=== PATIENT | female | born 1990 | race Caucasian/White ===

== ENCOUNTER 2016-06-01 15:38 | Emergency (ER) | payer BC, OTHER ==
[2016-06-01 16:07] VITALS: BP 132/78; PULSE 84; RESP 18; TEMP 97.9; O2SAT 99
--- NOTE | 2016-06-01 16:34 | ED PDOC ---
HPI: Female Pain Time Seen by Provider: 06/01/16 16:09 Chief Complaint (Nursing): Abdominal Pain History Per: Patient History/Exam Limitations: no limitations Additional Complaint(s): 25-year-old female, presents to the emergency department with complaints of vaginal spotting and lower abdominal cramping for the past two days. Patient notes that her period is late x15 days. Home test was positive twice and negative once. Patient denies any nausea/vomiting, back pain, dizziness, diarrhea, dysuria/urinary frequency, vaginal discharge, or any other associated symptoms. No other complaints at this time. . Past Medical History Reviewed: Historical Data, Nursing Documentation, Vital Signs Vital Signs: Last Vital Signs Temp 97.9 F 06/01/16 16:05 Pulse 84 06/01/16 16:05 Resp 18 06/01/16 16:05 BP 132/78 06/01/16 16:05 Pulse Ox 99 06/01/16 16:05 - Medical History PMH: TIA - Family History Family History: States: Diabetes, Hypertension - Home Medications Home Medications: Ambulatory Orders Medication Instructions Recorded Sulfamethoxazole/Trimethopri 1 tab PO BID #14 tab 03/21/15 [Bactrim Ds 800 mg-160 mg] Tramadol Hydrochloride [Tramadol] 50 mg PO BID PRN #20 tab 03/21/15 Fluticasone Nasal [Flonase] 1 spray NS DAILY #1 bottle 03/22/16 Oseltamivir Phosphate [Tamiflu] 75 mg PO BID #10 capsule 03/22/16 - Allergies Allergies/Adverse Reactions: Allergies Allergy/AdvReac Type Severity Reaction Status Date / Time No Known Allergies Allergy Verified 03/21/15 09:12 Review of Systems ROS Statement: Except As Marked, All Systems Reviewed And Found Negative Constitutional: Negative for: Fever, Chills Cardiovascular: Negative for: Chest Pain Respiratory: Negative for: Cough, Shortness of Breath Gastrointestinal: Positive for: Abdominal Pain. Negative for: Nausea, Vomiting Genitourinary Female: Positive for: Vaginal Bleeding Musculoskeletal: Negative for: Back Pain Skin: Negative for: Rash Neurological: Negative for: Weakness, Headache, Dizziness Physical Exam - Reviewed Nursing Documentation Reviewed: Yes Vital Signs Reviewed: Yes - Physical Exam Appears: Positive for: Non-toxic, No Acute Distress Head Exam: Positive for: ATRAUMATIC, NORMOCEPHALIC Skin: Positive for: Warm, Dry. Negative for: Rash Cardiovascular/Chest: Positive for: Regular Rate, Rhythm Respiratory: Positive for: Normal Breath Sounds. Negative for: Accessory Muscle Use, Respiratory Distress Gastrointestinal/Abdominal: Positive for: Soft. Negative for: Tenderness Pelvic Exam: Positive for: Other (Scant blood noted in vaginal vault. Flow Match Sofa Cutter : BREA Blakely). Negative for: No Cerv. Motion Tender Extremity: Positive for: Normal ROM Neurologic/Psych: Positive for: Alert, Oriented - ECG O2 Sat by Pulse Oximetry: 99 Medical Decision Making Medical Decision Making: Impression: vaginal spotting Plan: * Urine/preg * Reassess and Disposition Scribe Attestation: Documented by Norbert Dorado acting as a scribe for James Shelton MD. Provider Attestation: All medical record entries made by the Scribe were at my direction and personally dictated by me. I have reviewed the chart and agree that the record accurately reflects my personal performance of the history, physical exam, medical decision making, and the department course for this patient. I have also personally directed, reviewed, and agree with the discharge instructions and disposition. Disposition - Clinical Impression Clinical Impression: Abdominal pain - Patient ED Disposition Is Patient to be Admitted: Transfer of Care - Disposition Disposition: Transfer of Care Disposition Time: 16:54 Condition: FAIR Patient Signed Over To: Mansoor Barajas
--- NOTE | 2016-06-01 16:58 | ED PDOC ---
- Laboratory Results Result Diagrams: 06/01/16 17:00 06/01/16 17:00 - ECG O2 Sat by Pulse Oximetry: 99 Medical Decision Making Medical Decision Making: Time: 1700 Patient signed out by Dr. Shelton pending labs and status 18:20 Labs normal, showed that patient is not . Patient to go home with C.O.D. CLERK follow up. Patient RH positive. Discussed with patient, ready to be discharged home. Scribe Attestation: Documented by Laney Modi acting as a scribe for Mansoor Barajas MD MD Scribe Attestation: All medical record entries made by the Scribe were at my direction and personally dictated by me. I have reviewed the chart and agree that the record accurately reflects my personal performance of the history, physical exam, medical decision making, and the department course for this patient. I have also personally directed, reviewed, and agree with the discharge instructions and disposition. 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 return to the ED with any worsening or concerning symptoms Instructions: Abdominal Pain (ED)
[2016-06-01 17:11] LABS: BASO # 0.1 K/uL (0.0-0.2); BASO % 0.7 % (0.0-2.0); EOS # 0.1 K/uL (0.0-0.7); EOS % 0.8 % (0.0-4.0); HEMATOCRIT 39.7 % (34.0-47.0); LYMPH % 22.5 % (20.0-40.0); MEAN CELL VOLUME 86.4 fl (81.0-99.0); MEAN CORPUSCULAR HEMOGLOBIN 29.2 pg (27.0-31.0); MEAN CORPUSCULAR HGB CONC 33.8 g/dL (33.0-37.0); MEAN PLATELET VOLUME 7.5 fl (7.2-11.7); MONO # 0.6 K/uL (0.0-0.8); NEUT # 6.1 K/uL (1.8-7.0); NRBC % 0.1 % (0.0-0.0); RED CELL DISTRIBUTION WIDTH 13.6 % (11.5-14.5); WHITE BLOOD COUNT 8.9 K/uL (4.8-10.8)
[2016-06-01 17:30] LABS: ALB/GLOB RATIO 1.3 (1.0-2.1); ALKALINE PHOSPHATASE 107 U/L (38-126); ALT/SGPT 35 U/L (9-52); AST/SGOT 29 U/L (14-36); BILIRUBIN,TOTAL 0.4 mg/dl (0.2-1.3); BLOOD UREA NITROGEN 15 mg/dl (7-17); CALCIUM 9.7 mg/dL (8.4-10.2); CARBON DIOXIDE 29 mmol/L (22-30); CHLORIDE 101 mmol/L (98-107); GFR AFRICAN-AMERICAN > 60; GLUCOSE,RANDOM 89 mg/dL (65-105); POTASSIUM 3.8 MMOL/L (3.6-5.0); SODIUM 142 mmol/l (132-148); TOTAL PROTEIN 7.8 G/DL (6.3-8.2)
== END 2016-06-01 18:48 | disposition home or self-care (01) ==
LOC: H.ER 15:38
DX: R10.9 Unspecified abdominal pain (principal); Z86.73 Personal history of transient ischemic attack (TIA), and cerebral infarction without residual deficits

== ENCOUNTER 2016-06-05 08:49 | Emergency (ER) | payer OTHER ==
[2016-06-05 09:12] VITALS: BP 121/77; PULSE 72; RESP 18; TEMP 98.2; O2SAT 100
[2016-06-05 09:52] LABS: BASO % 0.6 % (0.0-2.0); EOS % 0.4 % (0.0-4.0); HEMATOCRIT 40.3 % (34.0-47.0); LYMPH # 1.8 K/uL (1.0-4.3); LYMPH % 28.7 % (20.0-40.0); MEAN CELL VOLUME 86.4 fl (81.0-99.0); MEAN CORPUSCULAR HEMOGLOBIN 29.1 pg (27.0-31.0); MEAN CORPUSCULAR HGB CONC 33.7 g/dL (33.0-37.0); MEAN PLATELET VOLUME 7.4 fl (7.2-11.7); MONO # 0.4 K/uL (0.0-0.8); MONO % 6.9 % (0.0-10.0); NEUT % 63.4 % (50.0-75.0); RED CELL DISTRIBUTION WIDTH 13.5 % (11.5-14.5); WHITE BLOOD COUNT 6.3 K/uL (4.8-10.8)
[2016-06-05 10:04] LABS: ALB/GLOB RATIO 1.3 (1.0-2.1); ALKALINE PHOSPHATASE 110 U/L (38-126); ALT/SGPT 35 U/L (9-52); AST/SGOT 25 U/L (14-36); BILIRUBIN,TOTAL 0.6 mg/dl (0.2-1.3); BLOOD UREA NITROGEN 12 mg/dl (7-17); CALCIUM 9.5 mg/dL (8.4-10.2); CARBON DIOXIDE 26 mmol/L (22-30); CHLORIDE 103 mmol/L (98-107); GFR AFRICAN-AMERICAN > 60; GLUCOSE,RANDOM 98 mg/dL (65-105); SODIUM 142 mmol/l (132-148); TOTAL PROTEIN 7.3 G/DL (6.3-8.2)
[2016-06-05 10:08] LABS: URINE BILIRUBIN NEGATIVE (NEGATIVE); URINE BLOOD NEGATIVE (NEGATIVE); URINE COLOR YELLOW (YELLOW); URINE GLUCOSE (UA) NEG (Normal); URINE KETONE NEGATIVE (NEGATIVE); URINE LEUKOCYTE ESTERASE NEG Leu/uL (Negative); URINE PROTEIN NEGATIVE (NEGATIVE); URINE UROBILINOGEN 0.2-1.0 mg/dL (0.2-1.0)
--- NOTE | 2016-06-05 11:17 | US ---
Pelvic ultrasound dated 06/05/2016. History: Pelvic pain. Bleeding. Transabdominal/transvaginal sonographic evaluation of the pelvis performed. No prior ultrasound available for comparison however correlation made with CT scan of the abdomen and pelvis dated 03/21/2015. Findings: The uterus is retroverted measuring approximately 7.5 x 3.1 x 5.0 cm. Endometrial stripe measures 1.3 cm likely due to and [employer] phase of the endometrial cycle. . There are no uterine masses. No free fluid is identified within the cul de sac. Right ovary measures 2.5 x 2.5 x 1.7 cm exhibits arterial flow. Right ovary contains multiple follicular cysts. Left ovary measures 3.1 x 2.0 x 2.4 cm and also exhibits arterial flow. Multiple follicular cysts are present as well. Impression: Unremarkable pelvic ultrasound. .
--- NOTE | 2016-06-05 13:36 | ED PDOC ---
HPI: Female Pain Time Seen by Provider: 06/05/16 09:13 Chief Complaint (Nursing): Female Genitourinary Chief Complaint (Provider): Female Genitourinary History Per: Patient History/Exam Limitations: no limitations Onset/Duration Of Symptoms: Days Current Symptoms Are (Timing): Still Present Severity: Mild Quality Of Discomfort: "Pain" Associated Symptoms: denies: Fever, Chills, Nausea, Diarrhea, Urinary Symptoms Alleviating Factors: None Additional Complaint(s): Patient is a 25 year old female who presents to ED for ongoing pelvic pain and vaginal bleeding for several days. Patient states she had a positive home test last month after missing her period, evaluated in ED several days ago with blood work showing no . States she followed up with Dr. Manzo who scheduled her for an out patient pelvic ultrasound but symptoms persisted which prompted ED visit. Denies back pain, fever or vaginal discharge Abnormal Vaginal Bleeding: Yes Past Medical History Reviewed: Historical Data, Nursing Documentation, Vital Signs Vital Signs: Last Vital Signs Temp 98.2 F 06/05/16 09:09 Pulse 72 06/05/16 09:09 Resp 18 06/05/16 09:09 BP 121/77 06/05/16 09:09 Pulse Ox 100 06/05/16 09:09 - Medical History PMH: Asthma, TIA Denies: Chronic Kidney Disease - Surgical History Surgical History: No Surg Hx - Family History Family History: States: Diabetes, Hypertension - Living Arrangements Living Arrangements: With Family - Home Medications Home Medications: Ambulatory Orders Medication Instructions Recorded Sulfamethoxazole/Trimethopri 1 tab PO BID #14 tab 03/21/15 [Bactrim Ds 800 mg-160 mg] Tramadol Hydrochloride [Tramadol] 50 mg PO BID PRN #20 tab 03/21/15 Fluticasone Nasal [Flonase] 1 spray NS DAILY #1 bottle 03/22/16 Oseltamivir Phosphate [Tamiflu] 75 mg PO BID #10 capsule 03/22/16 Naproxen [Naprosyn] 500 mg PO BID PRN #14 tablet 06/05/16 - Allergies Allergies/Adverse Reactions: Allergies Allergy/AdvReac Type Severity Reaction Status Date / Time No Known Allergies Allergy Verified 06/05/16 09:08 Review of Systems Constitutional: Negative for: Fever, Chills Gastrointestinal: Negative for: Nausea, Vomiting, Abdominal Pain, Diarrhea Genitourinary Female: Positive for: Vaginal Bleeding, Pelvic Pain. Negative for : Dysuria, Frequency, Hematuria, Vaginal Discharge Musculoskeletal: Negative for: Back Pain Skin: Negative for: Rash Physical Exam - Reviewed Nursing Documentation Reviewed: Yes Vital Signs Reviewed: Yes - Physical Exam Appears: Positive for: Non-toxic, No Acute Distress Skin: Positive for: Normal Color, Warm. Negative for: Pallor Eye Exam: Positive for: Normal appearance Neck: Positive for: Normal Cardiovascular/Chest: Positive for: Regular Rate, Rhythm. Negative for: Murmur Respiratory: Positive for: Normal Breath Sounds. Negative for: Respiratory Distress Gastrointestinal/Abdominal: Positive for: Soft, Tenderness (mild bilateral lower pelvic ). Negative for: Distended, Guarding, Rebound Back: Positive for: Normal Inspection Extremity: Positive for: Normal ROM Neurologic/Psych: Positive for: Alert, Oriented - Laboratory Results Result Diagrams: 06/05/16 09:00 06/05/16 09:00 - ECG O2 Sat by Pulse Oximetry: 100 (RA) Pulse Ox Interpretation: Normal Medical Decision Making Medical Decision Making: Time: 09 Initial impression: Vaginal bleeding Initial plan: -- Beta-HcG -- Urine preg -- CBC -- U/A -- U/S Patient declined pain medication at this time Time: 0955 Lab work reviewed all WNL, Beta-HcG remains negative Time:1200 U/S report reviewed Pelvic ultrasound dated 06/05/2016. History: Pelvic pain. Bleeding. Transabdominal/transvaginal sonographic evaluation of the pelvis performed. No prior ultrasound available for comparison however correlation made with CT scan of the abdomen and pelvis dated 03/21/2015. Findings: The uterus is retroverted measuring approximately 7.5 x 3.1 x 5.0 cm. 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 . There are no uterine masses. No free fluid is identified within the cul de sac. Right ovary measures 2.5 x 2.5 x 1.7 cm exhibits arterial flow. Right ovary contains multiple follicular cysts. Left ovary measures 3.1 x 2.0 x 2.4 cm and also exhibits arterial flow. Multiple follicular cysts are present as well. Impression: Unremarkable pelvic ultrasound. . Time: 1330 Patient to be discharged at this time, instructed to follow up with [facility] and take Naprosyn as needed for discomfort Scribe Attestation: Documented by Laney Modi acting as a scribe for Jan Branch DO MD Scribe Attestation: All medical record entries made by the Scribe were at my direction and personally dictated by me. I have reviewed the chart and agree that the record accurately reflects my personal performance of the history, physical exam, medical decision making, and the department course for this patient. I have also personally directed, reviewed, and agree with the discharge instructions and disposition. Disposition - Clinical Impression Clinical Impression: Pelvic pain - Disposition Referrals: Cj Perez MD [Staff Provider] - Condition: STABLE Additional Instructions: Followup with PMD and [facility] doctor in 2-3 days. Return to ER for any worse or new symptoms. Prescriptions: Naproxen [Naprosyn] 500 mg PO BID PRN #14 tablet PRN Reason: Pain, Moderate (4-7) Instructions: Pelvic Pain (ED) Forms: [facility] ED School/Work Excuse
== END 2016-06-05 13:26 | disposition home or self-care (01) ==
LOC: H.ER 08:49
DX: R10.2 Pelvic and perineal pain (principal)

== ENCOUNTER 2016-09-02 08:22 | Emergency (ER) | payer OTHER ==
[2016-09-02 08:49] VITALS: BP 130/85; PULSE 76; RESP 18; TEMP 97; O2SAT 98
--- NOTE | 2016-09-02 09:46 | ED PDOC ---
HPI: Allergic Reaction Time Seen by Provider: 09/02/16 09:14 Chief Complaint (Nursing): Abnormal Skin Integrity Chief Complaint (Provider): rash History Per: Patient History/Exam Limitations: no limitations Onset/Duration Of Symptoms: Days (x 4) Current Symptoms Are (Timing): Intermittent Episodes Possible Cause: Food (kiwi) Home/EMS Treatment: Benadryl Additional Complaint(s): Ansley Coppola is a 25 year old female, with a previous medical history of asthma , who presents to the ED for the evaluation of a fever associated with a diffuse itchy rash and sore throat ongoing for 4 days secondary to having kiwi in her fruit bowl which she is allergic to. Patient denies any chest pain, shortness of breath, headache, runny nose or coughing. She reports seeing a doctor at [facility] 2 days ago who informed the patient she was experiencing an allergic reaction and gave her benadryl which she reports alleviates the symptoms. She states sore throat is better but fever and rash intermittently persist. Patient reports to taking benadryl prior to arrival. Pt. with no dyspnea, swelling of mouth. PMD: Sukhjinder GARDNER Past Medical History Reviewed: Historical Data, Nursing Documentation, Vital Signs Vital Signs: Last Vital Signs Temp 97 F L 09/02/16 08:42 Pulse 76 09/02/16 08:42 Resp 18 09/02/16 08:42 BP 130/85 09/02/16 08:42 Pulse Ox 98 09/02/16 08:42 - Medical History PMH: Asthma Denies: Chronic Kidney Disease - Surgical History Surgical History: No Surg Hx - Family History Family History: States: Diabetes, Hypertension - Social History Current smoker - smoking cessation education provided: No Alcohol: None Drugs: Denies - Home Medications Home Medications: Ambulatory Orders Medication Instructions Recorded DiphenhydrAMINE [Benadryl] 1 tab PO DAILY 09/02/16 DiphenhydrAMINE [Benadryl] 25 mg PO Q8H PRN 5 Days 09/02/16 predniSONE [predniSONE Tab] 20 mg PO BID 5 Days 09/02/16 - Allergies Allergies/Adverse Reactions: Allergies Allergy/AdvReac Type Severity Reaction Status Date / Time kiwi Allergy RASH Verified 09/02/16 08:50 Review of Systems ROS Statement: Except As Marked, All Systems Reviewed And Found Negative Constitutional: Positive for: Fever ENT: Positive for: Throat Pain. Negative for: Nose Congestion Cardiovascular: Negative for: Chest Pain Respiratory: Negative for: Cough, Shortness of Breath Skin: Positive for: Rash Physical Exam - Reviewed Nursing Documentation Reviewed: Yes Vital Signs Reviewed: Yes - Physical Exam Appears: Positive for: Well, Non-toxic, No Acute Distress Head Exam: Positive for: ATRAUMATIC, NORMAL INSPECTION, NORMOCEPHALIC Skin: Positive for: Warm, Dry, Rash (mild blanching erythema on chest and diffuse blanching on face bilaterally; in urticaria pattern; nontender; no dc; no induration) Eye Exam: Positive for: Normal appearance, EOMI, PERRL. Negative for: Nystagmus ENT: Positive for: Normal ENT Inspection. Negative for: Nasal Congestion, Pharyngeal Erythema, Tonsillar Exudate, Tonsillar Swelling Neck: Positive for: Normal, Painless ROM, Supple Cardiovascular/Chest: Positive for: Regular Rate, Rhythm Respiratory: Positive for: Normal Breath Sounds. Negative for: Decreased Breath Sounds, Accessory Muscle Use, Wheezing, Respiratory Distress Gastrointestinal/Abdominal: Positive for: Normal Exam, Bowel Sounds, Soft. Negative for: Tenderness Back: Positive for: Normal Inspection. Negative for: L CVA Tenderness, R CVA Tenderness Extremity: Positive for: Normal ROM. Negative for: Tenderness, Swelling Neurologic/Psych: Positive for: Alert, Oriented - ECG O2 Sat by Pulse Oximetry: 98 (RA) Pulse Ox Interpretation: Normal - Progress ED Course And Treament: 1030: Stable. AAOx3. Pain free. Rash improvement. Likely URI and allergic reaction. Disposition - Clinical Impression Clinical Impression: URI (upper respiratory infection), Allergic reaction - Patient ED Disposition Is Patient to be Admitted: No Counseled Patient/Family Regarding: Diagnosis, Need For Followup - Disposition Referrals: [facility] [Outside] - 09/03/16 Disposition: Routine/Home Disposition Time: 10:33 Condition: STABLE Additional Instructions: Return if not better in 3 days. Prescriptions: DiphenhydrAMINE [Benadryl] 25 mg PO Q8H PRN 5 Days PRN Reason: Rash predniSONE [predniSONE Tab] 20 mg PO BID 5 Days Instructions: Upper Respiratory Infection (ED), General Allergic Reaction (ED) MDMA - Impression/Plan/Differential Dx Note:: Initial Impression: Rash, sore throat Initial Plan: * beandryl * prednisone * urine * reevaluation Upon provider reevaluation patient is feeling better, is medically stable, and requires no further treatment in the ED at this time. Patient will be discharged home. Counseling was provided and all questions were answered regarding diagnosis and need for follow up. There is agreement to discharge plan. Return if symptoms persist or worsen. Scribe Attestation: Documented by Юлия Warren, acting as a scribe for Sherif Watters MD. Provider Scribe Attestation: All medical record entries made by the Scribe were at my direction and personally dictated by me. I have reviewed the chart and agree that the record accurately reflects my personal performance of the history, physical exam, medical decision making, and the department course for this patient. I have also personally directed, reviewed, and agree with the discharge instructions and disposition.
== END 2016-09-02 11:05 | disposition home or self-care (01) ==
LOC: H.ER 08:22
DX: T78.40XA Allergy, unspecified, initial encounter (principal); J45.909 Unspecified asthma, uncomplicated

== ENCOUNTER 2016-09-09 12:05 | Emergency (ER) | payer OTHER ==
[2016-09-09 12:26] VITALS: BP 137/74; PULSE 90; RESP 18; TEMP 98.3; O2SAT 99
--- NOTE | 2016-09-09 13:11 | ED PDOC ---
HPI: Skin/Bite Injury Time Seen by Provider: 09/09/16 12:30 Chief Complaint (Nursing): Abnormal Skin Integrity Chief Complaint (Provider): Rash History Per: Patient History/Exam Limitations: no limitations Onset/Duration Of Symptoms: Days (1) Current Symptoms Are (Timing): Still Present Additional Complaint(s): Ansley Coppola is a 25 y/o female presenting to the ER on 09/09/2016 with complaints of a rash onset yesterday. Rash, which is localized to her inner thighs with no radiation, is described as "sore" but not pruritic. Patient states rash is associated with watery eyes and scratchy throat. Patient reports she completed her course of Prednisone which helped her previous rash she had. She denies any shortness of breath or other complaints at this time. Past Medical History Reviewed: Historical Data, Nursing Documentation, Vital Signs Vital Signs: Last Vital Signs Temp 98.3 F 09/09/16 12:23 Pulse 90 09/09/16 12:23 Resp 18 09/09/16 12:23 BP 137/74 09/09/16 12:23 Pulse Ox 99 09/09/16 13:18 - Medical History PMH: Asthma Denies: Chronic Kidney Disease, TIA - Surgical History Surgical History: No Surg Hx - Family History Family History: States: Diabetes, Hypertension - Social History Current smoker - smoking cessation education provided: Yes Alcohol: Occasional Drugs: Denies - Home Medications Home Medications: Ambulatory Orders Medication Instructions Recorded DiphenhydrAMINE [Benadryl] 1 tab PO DAILY 09/02/16 DiphenhydrAMINE [Benadryl] 25 mg PO Q8H PRN 5 Days 09/02/16 predniSONE [predniSONE Tab] 20 mg PO BID 5 Days 09/02/16 Fexofenadine/Pseudoephedrine 1 each PO BID PRN #12 tab.er.12h 09/09/16 [Kendal-D 12 Hour Tablet] - Allergies Allergies/Adverse Reactions: Allergies Allergy/AdvReac Type Severity Reaction Status Date / Time kiwi Allergy RASH Verified 09/02/16 08:50 Review of Systems ROS Statement: Except As Marked, All Systems Reviewed And Found Negative Respiratory: Negative for: Shortness of Breath Skin: Positive for: Rash Physical Exam - Reviewed Nursing Documentation Reviewed: Yes Vital Signs Reviewed: Yes - Physical Exam Appears: Positive for: Non-toxic, No Acute Distress Head Exam: Positive for: ATRAUMATIC, NORMOCEPHALIC Skin: Positive for: Rash ((+) rash with irritated area to inner thighs. (+) blanching appears due to friction. No surrounding erythema ) Eye Exam: Positive for: Normal appearance, EOMI, PERRL Neck: Positive for: Normal, Painless ROM, Supple Cardiovascular/Chest: Positive for: Regular Rate, Rhythm. Negative for: Murmur Respiratory: Positive for: Normal Breath Sounds. Negative for: Respiratory Distress Extremity: Positive for: Normal ROM. Negative for: Deformity, Swelling Neurologic/Psych: Positive for: Alert, Oriented. Negative for: Motor/Sensory Deficits - ECG O2 Sat by Pulse Oximetry: 99 Medical Decision Making Medical Decision Makin:30 Initial Impression- 25 y/o female with rash Pt will be discharged routinely with rx for Kendal-D. Pt will be referred to a specialist and was encouraged to schedule a follow-up within 2-3 days. Advised to return if condition persists or worsen. Condition is stable for discharge. Clinical Impression- Seasonal Allergies Documented by Dacrie Watters, acting as a scribe for Lani Cardenas PA-C All medical record entries made by the Scribe were at my direction and personally dictated by me. I have reviewed the chart and agree that the record accurately reflects my personal performance of the history, physical exam, medical decision making, and the department course for this patient. I have also personally directed, reviewed, and agree with the discharge instructions and disposition. Disposition - Clinical Impression Clinical Impression: Seasonal allergies - Patient ED Disposition Is Patient to be Admitted: No - Disposition Referrals: Isaac Regan MD [Staff Provider] - Disposition: Routine/Home Disposition Time: 13:20 Condition: STABLE Additional Instructions: Please follow-up with administrative aide. Prescriptions: Fexofenadine/Pseudoephedrine [Kendal-D 12 Hour Tablet] 1 each PO BID PRN #12 tab.er.12h PRN Reason: Cough And Congestion Instructions: Allergies (ED) Forms: [facility] ED School/Work Excuse
== END 2016-09-09 13:41 | disposition home or self-care (01) ==
LOC: H.ER 12:05
DX: J30.2 Other seasonal allergic rhinitis (principal); J45.909 Unspecified asthma, uncomplicated

== ENCOUNTER 2016-09-25 10:21 | Emergency (ER) | payer OTHER ==
[2016-09-25 10:26] VITALS: BP 123/68; PULSE 72; RESP 18; TEMP 98.1
[2016-09-25 10:50] VITALS: O2SAT 98
[2016-09-25] MEDS ORDERED: Sodium Chloride 0.9% 1,000 ML IV STA (11:00)
--- NOTE | 2016-09-25 11:05 | ED PDOC ---
HPI: Abdomen Time Seen by Provider: 09/25/16 11:03 Chief Complaint (Nursing): Abdominal Pain Chief Complaint (Provider): syncope History Per: Patient (25 y/o female here for evaluation of syncopal episode that occurred today when she was working. States she was getting ready to go outdoors and felt nauseaous then dizzy and passed out. Brief episode of syncope witnessed by others. Unsure if she struck head but does not have headache. Notes lower abdominal pain. States she has missed period 09/18. Has been trying to get .) Past Medical History Reviewed: Historical Data, Nursing Documentation, Vital Signs Vital Signs: Last Vital Signs Temp 98.1 F 09/25/16 10:26 Pulse 72 09/25/16 10:26 Resp 18 09/25/16 10:26 BP 123/68 09/25/16 10:26 Pulse Ox 98 09/25/16 15:32 - Medical History PMH: Asthma Denies: Chronic Kidney Disease, TIA - Family History Family History: States: Diabetes, Hypertension - Home Medications Home Medications: Ambulatory Orders Medication Instructions Recorded DiphenhydrAMINE [Benadryl] 1 tab PO DAILY 09/02/16 DiphenhydrAMINE [Benadryl] 25 mg PO Q8H PRN 5 Days 09/02/16 predniSONE [predniSONE Tab] 20 mg PO BID 5 Days 09/02/16 Fexofenadine/Pseudoephedrine 1 each PO BID PRN #12 tab.er.12h 09/09/16 [Kendal-D 12 Hour Tablet] - Allergies Allergies/Adverse Reactions: Allergies Allergy/AdvReac Type Severity Reaction Status Date / Time danielwi Allergy RASH Verified 09/25/16 10:47 Review of Systems ROS Statement: Except As Marked, All Systems Reviewed And Found Negative Physical Exam - Reviewed Nursing Documentation Reviewed: Yes Vital Signs Reviewed: Yes (ortho: bp lay 108/75 p 75; standing bp 105/69 p 66) - Physical Exam Appears: Positive for: Well, Non-toxic, No Acute Distress Head Exam: Positive for: ATRAUMATIC, NORMAL INSPECTION, NORMOCEPHALIC Skin: Positive for: Normal Color, Warm, DRY Eye Exam: Positive for: EOMI, Normal appearance, PERRL ENT: Positive for: Normal ENT Inspection Neck: Positive for: Normal, Painless ROM Cardiovascular/Chest: Positive for: Regular Rate, Rhythm Respiratory: Positive for: CNT, Normal Breath Sounds Gastrointestinal/Abdominal: Positive for: Normal Exam, Bowel Sounds, Soft Back: Positive for: Normal Inspection Extremity: Positive for: Normal ROM Neurologic/Psych: Positive for: Alert, Oriented - Laboratory Results Result Diagrams: 09/25/16 11:20 09/25/16 11:20 Urine POC: Negative Urine dip results: Negative for: Leukocyte Esterase, Blood, Nitrate, Ketones, Glucose, Bilirubin, Protein - ECG ECG Rhythm: Positive for: Sinus Bradycardia (no ectopy no acute changes.) O2 Sat by Pulse Oximetry: 98 - Radiology X-Ray: Read By Radiologist (nad) - Progress ED Course And Treament: ns 1 liter zofran 4mg iv x 1 dose d dimer elevated CTA chest: neg for PE Pateint feelsimproved. Eating in ED Disposition - Clinical Impression Clinical Impression: Syncope - Patient ED Disposition Is Patient to be Admitted: No - Disposition Disposition: Routine/Home Disposition Time: 15:31 Condition: FAIR Instructions: Syncope (ED)
[2016-09-25 11:34] LABS: BASO # 0.1 K/uL (0.0-0.2); BASO % 0.9 % (0.0-2.0); EOS # 0.1 K/uL (0.0-0.7); EOS % 0.9 % (0.0-4.0); HEMOGLOBIN 13.8 g/dL (12.0-16.0); LYMPH # 2.1 K/uL (1.0-4.3); LYMPH % 34.4 % (20.0-40.0); MEAN CELL VOLUME 86.6 fl (81.0-99.0); MEAN CORPUSCULAR HEMOGLOBIN 28.4 pg (27.0-31.0); MEAN CORPUSCULAR HGB CONC 32.8 g/dL (33.0-37.0); MEAN PLATELET VOLUME 7.8 fl (7.2-11.7); MONO # 0.5 K/uL (0.0-0.8); MONO % 8.2 % (0.0-10.0); NEUT # 3.4 K/uL (1.8-7.0); NEUT % 55.6 % (50.0-75.0); RBC 4.86 Mil/uL (3.80-5.20); RED CELL DISTRIBUTION WIDTH 13.4 % (11.5-14.5); WHITE BLOOD COUNT 6.1 K/uL (4.8-10.8)
[2016-09-25 11:37] LABS: ALB/GLOB RATIO 1.5 (1.0-2.1); ALBUMIN 4.6 g/dL (3.5-5.0); ALT/SGPT 54 U/L (9-52); AST/SGOT 33 U/L (14-36); BLOOD UREA NITROGEN 13 mg/dl (7-17); CALCIUM 9.6 mg/dL (8.4-10.2); GFR AFRICAN-AMERICAN > 60; GFR NON-AFRICAN AMERICAN > 60; LIPASE 174 U/L (23-300); MAGNESIUM 2.1 MG/DL (1.6-2.3)
[2016-09-25 11:50] LABS: SQUAMOUS EPITHIAL 5 /hpf (0-5); URINE BACTERIA RARE (<OCC); URINE BILIRUBIN NEGATIVE (NEGATIVE); URINE BLOOD NEGATIVE (NEGATIVE); URINE CLARITY SLIGHTY-CLOUDY (Clear); URINE COLOR YELLOW (YELLOW); URINE GLUCOSE (UA) NEG (Normal); URINE LEUKOCYTE ESTERASE NEG Leu/uL (Negative); URINE NITRATE NEGATIVE (NEGATIVE); URINE PROTEIN NEGATIVE (NEGATIVE); URINE UROBILINOGEN 0.2-1.0 mg/dL (0.2-1.0)
--- NOTE | 2016-09-25 13:28 | RAD ---
HISTORY: syncope COMPARISON: Chest x-ray performed 03/22/16 TECHNIQUE: Chest, one view. FINDINGS: LUNGS: No focal consolidation. Please note that chest x-ray has limited sensitivity for the detection of pulmonary masses. PLEURA: No significant pleural effusion identified. No definite pneumothorax . CARDIOVASCULAR: The cardiomediastinal silhouette appears within normal limits of size. OSSEOUS STRUCTURES: No acute osseous abnormality identified. VISUALIZED UPPER ABDOMEN: Unremarkable. OTHER FINDINGS: None. IMPRESSION: No focal consolidation, significant pleural effusion, or definite pneumothorax identified.
[2016-09-25] MEDS ORDERED: Iodixanol 320 MG/ML 100 ML BOTTLE IV ONE (14:26)
[2016-09-25] MEDS ORDERED: Sodium Chloride 0.9% 50 ML IV ONE (14:26)
--- NOTE | 2016-09-25 15:13 | CT ---
CTA chest PE protocol Indication: Rule out PE Technique: Contiguous axial images were obtained through the chest with intravenous contrast enhancement. Sagittal and coronal reconstructions were generated and reviewed. This CT exam was performed using 1 or more of the falling dose reduction techniques: Automated exposure control, adjustment of the MAA and/or kV according to patient size, and/or use of iterative reconstruction technique. IV Contrast: 99 cc Visipaque 320 Radiation dose (DLP): 405.37 MGy-cm. Comparison: Chest x-ray performed 09/25/16 Findings: Visualized portions of the inferior thyroid gland appear unremarkable. The mediastinal and hilar vascular structures appear within normal limits. The heart appears within normal limits of size. No large central or segmental pulmonary embolus evident. No focal consolidation. No pleural effusion. No pneumothorax. No suspicious pulmonary nodules measuring greater than 5 mm. Small hiatal hernia. Limited visualized portions of the upper abdomen demonstrates 10 mm splenic hypodensity, indeterminate. 10 mm probable splenule. No acute osseous abnormality is detected. Impression: No large central or segmental pulmonary embolus identified.
--- NOTE | 2016-09-25 15:41 | CARD ---
APPROVED REPORT EKG Measurement Heart [id number] [id number] <Conclusion> Sinus bradycardia Low voltage QRS Cannot rule out Anterior infarct, age undetermined Abnormal ECG
== END 2016-09-25 15:58 | disposition home or self-care (01) ==
LOC: H.ER 10:21
DX: R55 Syncope and collapse (principal); R00.1 Bradycardia, unspecified; R10.9 Unspecified abdominal pain; J45.909 Unspecified asthma, uncomplicated

== ENCOUNTER 2016-09-28 12:17 | Emergency (ER) | payer OTHER ==
[2016-09-28 12:30] VITALS: BP 133/95; PULSE 88; RESP 16; TEMP 98; O2SAT 99
--- NOTE | 2016-09-28 13:37 | ED PDOC ---
HPI: General Adult Time Seen by Provider: 09/28/16 12:38 Chief Complaint (Nursing): Psychiatric Evaluation History Per: Patient Additional Complaint(s): Pt. states for the past 1.5 weeks she's been feeling depressed. States that she does not like it when her boyfriend hangs out with his friend. This make her feel jealous and very upset. Pt. states she does have a hx of depression and used to see a therapist but was never placed on medications nor has she had any previous psychiatric admissions. Denies SI/HI, hallucinations. Past Medical History Reviewed: Historical Data, Nursing Documentation, Vital Signs Vital Signs: Last Vital Signs Temp 98.0 F 09/28/16 12:28 Pulse 88 09/28/16 12:28 Resp 16 09/28/16 12:28 BP 133/95 H 09/28/16 12:28 Pulse Ox 99 09/28/16 14:42 - Medical History PMH: Asthma, Depression Denies: Chronic Kidney Disease, TIA - Family History Family History: States: Diabetes, Hypertension - Home Medications Home Medications: Ambulatory Orders Medication Instructions Recorded DiphenhydrAMINE [Benadryl] 1 tab PO DAILY 09/02/16 DiphenhydrAMINE [Benadryl] 25 mg PO Q8H PRN 5 Days 09/02/16 predniSONE [predniSONE Tab] 20 mg PO BID 5 Days 09/02/16 Fexofenadine/Pseudoephedrine 1 each PO BID PRN #12 tab.er.12h 09/09/16 [Kendal-D 12 Hour Tablet] - Allergies Allergies/Adverse Reactions: Allergies Allergy/AdvReac Type Severity Reaction Status Date / Time kiwi Allergy RASH Verified 09/28/16 12:28 mosquito bites Allergy RASH Uncoded 09/28/16 12:28 tangerines Allergy RASH Uncoded 09/28/16 12:28 Review of Systems ROS Statement: Except As Marked, All Systems Reviewed And Found Negative Physical Exam - Reviewed Nursing Documentation Reviewed: Yes Vital Signs Reviewed: Yes - Physical Exam Appears: Positive for: Well, Non-toxic, No Acute Distress Head Exam: Positive for: ATRAUMATIC, NORMAL INSPECTION, NORMOCEPHALIC Skin: Positive for: Normal Color, Warm, DRY Eye Exam: Positive for: EOMI, Normal appearance, PERRL ENT: Positive for: Normal ENT Inspection Neck: Positive for: Normal, Painless ROM Cardiovascular/Chest: Positive for: Regular Rate, Rhythm Respiratory: Positive for: CNT, Normal Breath Sounds Gastrointestinal/Abdominal: Positive for: Normal Exam, Bowel Sounds, Soft. Negative for: Tenderness Back: Positive for: Normal Inspection Extremity: Positive for: Normal ROM Neurologic/Psych: Positive for: Alert, Oriented, Mood/Affect (calm, cooperative) - ECG O2 Sat by Pulse Oximetry: 99 - Progress ED Course And Treament: Urine and urine drug screen ordered. Crisis evaluation ordered. Pt. evaluated by [employer] worker, who spoke with Dr. Myers and cleared pt. for discharge and outpatient f/u. Disposition - Clinical Impression Clinical Impression: Depression - Patient ED Disposition Is Patient to be Admitted: No - Disposition Disposition: Routine/Home Disposition Time: 14:37 Condition: STABLE Instructions: Depression (ED)
[2016-09-28 14:12] LABS: BARBITURATES, UR NEGATIVE (NEGATIVE); BENZODIAZEPINES, UR NEGATIVE (NEGATIVE); OPIATES, UR NEGATIVE (NEGATIVE); PHENCYCLIDINE, UR NEGATIVE (NEGATIVE)
== END 2016-09-28 14:48 | disposition home or self-care (01) ==
LOC: H.ER 12:17
DX: F32.9 Major depressive disorder, single episode, unspecified (principal)

== ENCOUNTER 2016-10-20 10:08 | Emergency (ER) | payer MEDICAID, OTHER ==
[2016-10-20 10:14] VITALS: BMI 25.7
--- NOTE | 2016-10-20 10:20 | ED PDOC ---
HPI: General Adult Time Seen by Provider: 10/20/16 10:18 Chief Complaint (Provider): nausea, possible History Per: Patient Additional Complaint(s): 25-year-old female presents to emergency department with abdominal pain, nausea and vomiting. Patient took 2 test lasts week and they both came out positive. She states her last period was September 10 and she did not menstruate in October. The patient denies any vaginal bleeding. No fever or chills. Patient unable to keep down any liquids or solids. She states this is her first . She estimates she is about 6 weeks along. Past Medical History Reviewed: Historical Data, Nursing Documentation, Vital Signs Vital Signs: Last Vital Signs Temp 97 F L 10/20/16 10:39 Pulse 74 10/20/16 10:39 Resp 16 10/20/16 10:39 BP 116/74 10/20/16 10:39 Pulse Ox 99 10/20/16 12:18 - Medical History PMH: Asthma, Depression - Surgical History Surgical History: No Surg Hx - Family History Family History: States: Diabetes, Hypertension - Living Arrangements Living Arrangements: With Family - Social History Current smoker - smoking cessation education provided: No Ex-Smoker (has not smoked in the last 12 months): Yes (was occasional smoker, has not smoked since ) Alcohol: None Drugs: Denies - Home Medications Home Medications: Ambulatory Orders Medication Instructions Recorded DiphenhydrAMINE [Benadryl] 1 tab PO DAILY 09/02/16 DiphenhydrAMINE [Benadryl] 25 mg PO Q8H PRN 5 Days 09/02/16 predniSONE [predniSONE Tab] 20 mg PO BID 5 Days 09/02/16 Fexofenadine/Pseudoephedrine 1 each PO BID PRN #12 tab.er.12h 09/09/16 [Kendal-D 12 Hour Tablet] Ondansetron [Zofran Odt] 4 mg PO ASDIR PRN #12 odt 10/20/16 - Allergies Allergies/Adverse Reactions: Allergies Allergy/AdvReac Type Severity Reaction Status Date / Time kiwi Allergy RASH Verified 09/28/16 12:28 mosquito bites Allergy RASH Uncoded 09/28/16 12:28 tangerines Allergy RASH Uncoded 09/28/16 12:28 Review of Systems ROS Statement: Except As Marked, All Systems Reviewed And Found Negative Constitutional: Negative for: Fever Respiratory: Negative for: Cough Gastrointestinal: Positive for: Nausea, Vomiting, Abdominal Pain Genitourinary Female: Negative for: Dysuria, Frequency, Hematuria, Vaginal Discharge, Vaginal Bleeding Neurological: Negative for: Headache, Dizziness Physical Exam - Reviewed Nursing Documentation Reviewed: Yes Vital Signs Reviewed: Yes - Physical Exam Appears: Positive for: Well, Non-toxic, No Acute Distress Skin: Negative for: Rash Eye Exam: Positive for: Normal appearance, EOMI, PERRL Cardiovascular/Chest: Positive for: Regular Rate, Rhythm Respiratory: Positive for: Normal Breath Sounds Gastrointestinal/Abdominal: Positive for: Soft. Negative for: Tenderness, Distended, Guarding, Rebound Back: Negative for: L CVA Tenderness, R CVA Tenderness Extremity: Positive for: Normal ROM. Negative for: Pedal Edema Neurologic/Psych: Positive for: Alert, Oriented - Laboratory Results Result Diagrams: 10/20/16 10:55 10/20/16 10:55 Urine POC: Negative Urine dip results: Negative for: Leukocyte Esterase, Blood, Nitrate, Ketones, Glucose, Bilirubin, Protein - ECG O2 Sat by Pulse Oximetry: 99 Pulse Ox Interpretation: Normal Medical Decision Making Medical Decision Makin25 year old female with nausea, vomiting and abdominal pain Plan: test - result is negative in ED, will obtain serum beta CBC CMP UA IVF IV zofran Patient was able to tolerate juice and water after Zofran with no further emesis noted. Beta is negative. Repeat examination of abdomen remains benign. Rx zofran given, advised bland diet, fluids and rest. Advised PMD follow up in 1-2 days. Disposition - Clinical Impression Clinical Impression: Vomiting, Abdominal pain - Patient ED Disposition Is Patient to be Admitted: No Counseled Patient/Family Regarding: Studies Performed, Diagnosis, Need For Followup, Rx Given - Disposition Referrals: [facility] [Provider Group] Disposition: Routine/Home Disposition Time: 11:46 Condition: IMPROVED Additional Instructions: Take meds as directed as needed for nausea and vomiting. Follow bland diet and drink plenty of clear liquids. Follow up with primary care doctor in 1-2 days. Prescriptions: Ondansetron [Zofran Odt] 4 mg PO ASDIR PRN #12 odt PRN Reason: Nausea/Vomiting Instructions: Acute Nausea and Vomiting (ED), Abdominal Pain (ED) Results - Lab Results Lab Results: 10/20/16 10/20/16 10/20/16 11:19 10:55 10:55 WBC 5.3 RBC 4.97 Hgb 14.2 Hct 42.8 MCV 86.0 MCH 28.6 MCHC 33.2 RDW 14.0 Plt Count 291 MPV 7.6 Neut % (Auto) 59.5 Lymph % (Auto) 31.1 Collier % (Auto) 7.4 Eos % (Auto) 0.9 Baso % (Auto) 1.1 Neut # 3.2 Lymph # 1.7 Collier # 0.4 Eos # 0.0 Baso # 0.1 Sodium 139 Potassium 4.0 Chloride 103 Carbon Dioxide 26 Anion Gap 14 BUN 11 Creatinine 0.6 L Est GFR ( Amer) > 60 Est GFR (Non-Af Amer) > 60 Random Glucose 101 Calcium 9.6 Beta HCG, Quant < 2.39 Urine Color Yellow Urine Clarity Clear Urine pH 8.0 Ur Specific [place] 1.010 Urine Protein Trace Urine Glucose (UA) Negative Urine Ketones Negative Urine Blood Negative Urine Nitrate Negative Urine Bilirubin Negative Urine Urobilinogen 0.2 Ur Leukocyte Esterase Negative Urine RBC (Auto) 1 Urine Microscopic WBC 2 Ur Squamous Epith Cells 12 H Urine Bacteria Few H
[2016-10-20] MEDS ORDERED: Sodium Chloride 0.9% 1,000 ML IV STA (10:42)
[2016-10-20 11:06] LABS: BASO # 0.1 K/uL (0.0-0.2); BASO % 1.1 % (0.0-2.0); EOS % 0.9 % (0.0-4.0); HEMOGLOBIN 14.2 g/dL (12.0-16.0); LYMPH # 1.7 K/uL (1.0-4.3); LYMPH % 31.1 % (20.0-40.0); MEAN CORPUSCULAR HEMOGLOBIN 28.6 pg (27.0-31.0); MEAN CORPUSCULAR HGB CONC 33.2 g/dL (33.0-37.0); MEAN PLATELET VOLUME 7.6 fl (7.2-11.7); MONO # 0.4 K/uL (0.0-0.8); MONO % 7.4 % (0.0-10.0); NEUT # 3.2 K/uL (1.8-7.0); NEUT % 59.5 % (50.0-75.0); RBC 4.97 Mil/uL (3.80-5.20); WHITE BLOOD COUNT 5.3 K/uL (4.8-10.8)
[2016-10-20 11:14] LABS: BLOOD UREA NITROGEN 11 mg/dl (7-17); CALCIUM 9.6 mg/dL (8.4-10.2); GFR AFRICAN-AMERICAN > 60; GFR NON-AFRICAN AMERICAN > 60
[2016-10-20 11:56] LABS: URINE BILIRUBIN NEGATIVE (NEGATIVE); URINE BLOOD NEGATIVE (NEGATIVE); URINE CLARITY Clear (Clear); URINE COLOR YELLOW (YELLOW); URINE GLUCOSE (UA) NEGATIVE (Normal); URINE PROTEIN TRACE mg/dL (NEGATIVE)
[2016-10-20 11:57] LABS: SQUAMOUS EPITHIAL 12 /hpf (0-5); URINE BACTERIA FEW (<OCC); URINE LEUKOCYTE ESTERASE NEGATIVE Leu/uL (Negative); URINE NITRATE NEGATIVE (NEGATIVE); URINE UROBILINOGEN 0.2 mg/dL (0.2-1.0)
[2016-10-20 12:49] VITALS: BP 126/78; PULSE 78; RESP 20; TEMP 97.6; O2SAT 98
== END 2016-10-20 12:49 | disposition home or self-care (01) ==
LOC: H.ER 10:08
DX: O21.0 Mild hyperemesis gravidarum (principal); Z87.891 Personal history of nicotine dependence
CPT/HCPCS: 80048; 81003; 81025; 84702; 85025; 87086; 99282; J2405; J7040

== ENCOUNTER 2017-04-23 14:51 | Emergency (ER) | payer BC, MEDICAID ==
[2017-04-23 14:51] VITALS: BMI 25.7
[2017-04-23 14:58] VITALS: BP 122/87; PULSE 75; RESP 18; TEMP 97.9; O2SAT 97
[2017-04-23] MEDS ORDERED: Tdap Vaccine 0.5 ml Vial (10-64 yrs) IM ONE ×2 (15:37→15:46)
--- NOTE | 2017-04-23 15:41 | ED PDOC ---
Lower Extremity Pain/Injury Time Seen by Provider: 04/23/17 15:30 Chief Complaint (Nursing): Lower Extremity Problem/Injury Chief Complaint (Provider): Left ankle injury History Per: Patient History/Exam Limitations: no limitations Onset/Duration Of Symptoms: Days (x2) Current Symptoms Are (Timing): Still Present Additional Complaint(s): Patient is a 26 y/o female who presents for evaluation of left ankle injury. Yesterday slipped in the rain and fell, sustaining abrasions to both knees and injuring the ankle. Now complaining of worsened left ankle pain. Reports taking Advil today around noon, with minimal improvement. Tetanus is not up to date. PMD: Amy Corona Past Medical History Reviewed: Historical Data, Nursing Documentation, Vital Signs Vital Signs: Last Vital Signs Temp 97.9 F 04/23/17 14:56 Pulse 75 04/23/17 14:56 Resp 18 04/23/17 14:56 BP 122/87 04/23/17 14:56 Pulse Ox 97 04/23/17 14:56 - Medical History PMH: Asthma, Depression Denies: Diabetes, Hepatitis, HIV, HTN, Chronic Kidney Disease, Seizures, Sexually Transmitted Disease, TIA - Family History Family History: States: Diabetes, Hypertension - Home Medications Home Medications: Ambulatory Orders Medication Instructions Recorded DiphenhydrAMINE [Benadryl] 1 tab PO DAILY 09/02/16 DiphenhydrAMINE [Benadryl] 25 mg PO Q8H PRN 5 Days cap 09/02/16 predniSONE [predniSONE Tab] 20 mg PO BID 5 Days tab 09/02/16 Fexofenadine/Pseudoephedrine 1 each PO BID PRN #12 tab.er.12h 09/09/16 [Kendal-D 12 Hour Tablet] Ondansetron [Zofran Odt] 4 mg PO ASDIR PRN #12 odt 10/20/16 Naproxen 1 tab PO Q12 PRN #14 tab 04/23/17 - Allergies Allergies/Adverse Reactions: Allergies Allergy/AdvReac Type Severity Reaction Status Date / Time kiwi Allergy RASH Verified 09/28/16 12:28 mosquito bites Allergy RASH Uncoded 09/28/16 12:28 tangerines Allergy RASH Uncoded 09/28/16 12:28 Review of Systems ROS Statement: Except As Marked, All Systems Reviewed And Found Negative Musculoskeletal: Positive for: Foot Pain (left ankle/foot). Negative for: Other (knee pain) Skin: Positive for: Lesions (to knees) Neurological: Negative for: Weakness, Numbness Physical Exam - Reviewed Nursing Documentation Reviewed: Yes Vital Signs Reviewed: Yes - Physical Exam Appears: Positive for: Non-toxic, No Acute Distress Head Exam: Positive for: ATRAUMATIC, NORMOCEPHALIC Skin: Positive for: Normal Color, Warm, Dry Eye Exam: Positive for: EOMI, Normal appearance, PERRL Neck: Positive for: Normal, Supple Extremity: Positive for: Tenderness (to the left lateral malleolus, and left lateral foot), Swelling (mild), Other (Abrasions noted to patellar area bilaterally). Negative for: Deformity (or ecchymosis) Neurologic/Psych: Positive for: Alert, Oriented. Negative for: Motor/Sensory Deficits - ECG O2 Sat by Pulse Oximetry: 97 (RA) Pulse Ox Interpretation: Normal - Progress ED Course And Treament: XRY ANKLE LEFT: NO ACUTE FX XRY FOOT LEFT: NO ACUTE FX TYLENOL 975MG X 1 DOSE PLACED IN AIR CAST AND GIVEN CRUTCH INSTRUCTIONS. Medical Decision Making Medical Decision Making: Initial Impression: Left ankle injury Time: 15:32 Initial Plan: --Tdap vaccine given --Tylenol 975 mg PO --X-Ray Left Ankle --X-Ray Left Foot Scribe Attestation: Documented by Migdalia Butler, acting as a scribe for Horacio DeL os Santos PA-C Provider Scribe Attestation: All medical record entries made by the Scribe were at my direction and personally dictated by me. I have reviewed the chart and agree that the record accurately reflects my personal performance of the history, physical exam, medical decision making, and the department course for this patient. I have also personally directed, reviewed, and agree with the discharge instructions and disposition. Disposition - Clinical Impression Clinical Impression: Ankle injury - Patient ED Disposition Is Patient to be Admitted: No - Disposition Disposition: Routine/Home Disposition Time: 16:15 Condition: STABLE Prescriptions: Naproxen 1 tab PO Q12 PRN #14 tab PRN Reason: Pain, Moderate (4-7) Instructions: Ankle Sprain Forms: [facility] (Jordanian), [facility] ED School/Work Excuse
--- NOTE | 2017-04-23 16:19 | RAD ---
PROCEDURE: Left Ankle Radiographs. HISTORY: ankle injury COMPARISON: Correlation made with concurrent radiographs of the left foot. FINDINGS: BONES: No evidence of acute displaced fracture nor dislocation. . Very tiny early enthesophyte formation seen along the posterior and plantar surfaces of the calcaneus. JOINTS: Normal. No osteoarthritis. Ankle mortise maintained. Talar dome intact SOFT TISSUES: Normal. OTHER FINDINGS: None. IMPRESSION: No acute fractures.
--- NOTE | 2017-04-23 16:21 | RAD ---
PROCEDURE: Left Foot Radiographs. HISTORY: injury COMPARISON: None. FINDINGS: BONES: No evidence of acute displaced fracture nor dislocation. . Very tiny early enthesophyte formation seen along the posterior and plantar surfaces of the calcaneus. . JOINTS: Normal. SOFT TISSUES: Normal. OTHER FINDINGS: None. IMPRESSION: No evidence of acute displaced fracture nor dislocation.
== END 2017-04-23 16:50 | disposition home or self-care (01) ==
LOC: H.ER 14:51
DX: S99.912A Unspecified injury of left ankle, initial encounter (principal); W01.0XXA Fall on same level from slipping, tripping and stumbling without subsequent striking against object, initial encounter; Z23 Encounter for immunization

== ENCOUNTER 2017-12-27 14:05 | Emergency (ER) | payer MEDICAID ==
[2017-12-27 14:05] VITALS: BMI 25.8
[2017-12-27 14:50] VITALS: BP 119/72; PULSE 62; RESP 18; TEMP 98; O2SAT 100
[2017-12-27] MEDS ORDERED: Sodium Chloride 0.9% 1,000 ML IV STA (15:16)
--- NOTE | 2017-12-27 15:24 | ED PDOC ---
HPI: Abdomen Time Seen by Provider: 12/27/17 14:51 Chief Complaint (Nursing): GI Problem Chief Complaint (Provider): Abdominal pain History Per: Patient History/Exam Limitations: no limitations Onset/Duration Of Symptoms: Days (x2) Current Symptoms Are (Timing): Still Present Associated Symptoms: Nausea, Vomiting Additional Complaint(s): 27 year old female presents to the ED complaining of lower and upper abdominal pain, nausea, and vomiting. Patient states she completed a 10 day course of antibiotics yesterday for strep throat. LMP was December 02. She indicates she has an appointment in 2 days with her PMD because she is concerned of diabetes since she is always hungry and thirsty and has been peeing a lot. PMD: none provided Past Medical History Reviewed: Historical Data, Nursing Documentation, Vital Signs Vital Signs: Last Vital Signs Temp 98 F 12/27/17 14:47 Pulse 62 12/27/17 14:47 Resp 18 12/27/17 14:47 BP 119/72 12/27/17 14:47 Pulse Ox 100 12/27/17 14:47 - Medical History PMH: Asthma, Depression Denies: Diabetes, Hepatitis, HIV, HTN, Chronic Kidney Disease, Seizures, Sexually Transmitted Disease, TIA - Surgical History Surgical History: No Surg Hx - Family History Family History: States: Diabetes, Hypertension - Home Medications Home Medications: Ambulatory Orders Medication Instructions Recorded DiphenhydrAMINE [Benadryl] 1 tab PO DAILY 09/02/16 DiphenhydrAMINE [Benadryl] 25 mg PO Q8H PRN 5 Days cap 09/02/16 predniSONE [predniSONE Tab] 20 mg PO BID 5 Days tab 09/02/16 Fexofenadine/Pseudoephedrine 1 each PO BID PRN #12 tab.er.12h 09/09/16 [Kendal-D 12 Hour Tablet] Ondansetron [Zofran Odt] 4 mg PO ASDIR PRN #12 odt 10/20/16 Naproxen 1 tab PO Q12 PRN #14 tab 04/23/17 - Allergies Allergies/Adverse Reactions: Allergies Allergy/AdvReac Type Severity Reaction Status Date / Time kiwi Allergy RASH Verified 09/28/16 12:28 mosquito bites Allergy RASH Uncoded 09/28/16 12:28 tangerines Allergy RASH Uncoded 09/28/16 12:28 Review of Systems ROS Statement: Except As Marked, All Systems Reviewed And Found Negative Gastrointestinal: Positive for: Nausea, Vomiting, Abdominal Pain Physical Exam - Reviewed Nursing Documentation Reviewed: Yes Vital Signs Reviewed: Yes - Physical Exam Appears: Positive for: Non-toxic, No Acute Distress Head Exam: Positive for: ATRAUMATIC, NORMOCEPHALIC Skin: Positive for: Normal Color, Warm, Dry Eye Exam: Positive for: Normal appearance Neck: Positive for: Normal, Painless ROM Cardiovascular/Chest: Positive for: Regular Rate, Rhythm. Negative for: Murmur Respiratory: Positive for: Normal Breath Sounds. Negative for: Wheezing, Respiratory Distress Gastrointestinal/Abdominal: Positive for: Normal Exam (rest of exam normal), Tenderness (suprapubic tenderness) Extremity: Positive for: Normal ROM Neurologic/Psych: Positive for: Alert, Oriented. Negative for: Motor/Sensory Deficits - Laboratory Results Result Diagrams: 12/27/17 16:13 12/27/17 17:18 - ECG O2 Sat by Pulse Oximetry: 100 (RA) Pulse Ox Interpretation: Normal Medical Decision Making Medical Decision Making: Initial Impression: Abdominal pain Initial Plan: --Lipase --ED urine dipstick --ED urine --CBC --Sodium chloride 1000mL IV --Zofran 4mg IV --Rapid strep 16:16 Urinalysis showed 40 mg/dL of ketones. Otherwise unremarkable. Labs normal. Pt reports feeling better on re-evaluation. Strep (-) Discussed probiotics. Scribe Attestation: Documented by Saroj Martinez acting as a scribe for Lani SILVA. Provider Scribe Attestation: All medical record entries made by the Scribe were at my direction and personally dictated by me. I have reviewed the chart and agree that the record accurately reflects my personal performance of the history, physical exam, medical decision making, and the department course for this patient. I have also personally directed, reviewed, and agree with the discharge instructions and disposition. Disposition - Clinical Impression Clinical Impression: Medication side effect, Nausea - Patient ED Disposition Is Patient to be Admitted: No Counseled Patient/Family Regarding: Diagnosis, Need For Followup, Rx Given - Disposition Disposition: Routine/Home Disposition Time: 18:29 Condition: STABLE Additional Instructions: Please begin probiotics. Instructions: Side Effects From Medicines Forms: [employer] (Latvian)
[2017-12-27 16:24] LABS: BASO % 0.7 % (0.0-2.0); EOS % 0.5 % (0.0-4.0); HEMOGLOBIN 14.6 g/dL (12.0-16.0); LYMPH # 1.8 K/uL (1.0-4.3); LYMPH % 24.5 % (20.0-40.0); MEAN CELL VOLUME 87.2 fl (81.0-99.0); MEAN CORPUSCULAR HEMOGLOBIN 29.2 pg (27.0-31.0); MEAN CORPUSCULAR HGB CONC 33.5 g/dL (33.0-37.0); MEAN PLATELET VOLUME 7.6 fl (7.2-11.7); MONO # 0.5 K/uL (0.0-0.8); MONO % 7.2 % (0.0-10.0); NEUT # 4.9 K/uL (1.8-7.0); NEUT % 67.1 % (50.0-75.0); RBC 4.99 Mil/uL (3.80-5.20); RED CELL DISTRIBUTION WIDTH 13.2 % (11.5-14.5); WHITE BLOOD COUNT 7.3 K/uL (4.8-10.8)
[2017-12-27 17:41] LABS: ALB/GLOB RATIO 1.2 (1.0-2.1); ALBUMIN 4.4 g/dL (3.5-5.0); ALT/SGPT 30 U/L (9-52); AST/SGOT 47 U/L (14-36); BLOOD UREA NITROGEN 9 mg/dl (7-17); CALCIUM 9.7 mg/dL (8.4-10.2); GFR NON-AFRICAN AMERICAN > 60
== END 2017-12-27 18:45 | disposition home or self-care (01) ==
LOC: H.ER 14:05
DX: R11.0 Nausea (principal); Z86.59 Personal history of other mental and behavioral disorders; J45.909 Unspecified asthma, uncomplicated; T50.905A Adverse effect of unspecified drugs, medicaments and biological substances, initial encounter
CPT/HCPCS: 80053; 81025; 83690; 85025; 87070; 87430; 96360; 99283; J2405; J7030

== ENCOUNTER 2018-01-02 17:32 | Emergency (ER) | payer MEDICAID ==
[2018-01-02 17:32] VITALS: BMI 25.8
[2018-01-02 17:46] VITALS: RESP 18
--- NOTE | 2018-01-02 17:57 | ED PDOC ---
HPI: General Adult Time Seen by Provider: 01/02/18 17:54 Chief Complaint (Nursing): Fever Chief Complaint (Provider): nausea History Per: Patient Additional Complaint(s): 27-year-old female presents with nausea times one day. Patient is tolerating liquids but does not have an appetite for solids. She did not vomit today and denies diarrhea. No fever or chills. PMD: [place] Past Medical History Reviewed: Historical Data, Nursing Documentation, Vital Signs Vital Signs: Last Vital Signs Temp 98 F 01/02/18 17:41 Pulse 74 01/02/18 17:41 Resp 18 01/02/18 17:41 BP 137/83 01/02/18 17:41 Pulse Ox 98 01/02/18 17:41 - Medical History PMH: Asthma, Depression - Surgical History Surgical History: No Surg Hx - Family History Family History: States: Diabetes, Hypertension - Living Arrangements Living Arrangements: With Family - Social History Current smoker - smoking cessation education provided: No Alcohol: None Drugs: Denies - Home Medications Home Medications: Ambulatory Orders Medication Instructions Recorded DiphenhydrAMINE [Benadryl] 1 tab PO DAILY 09/02/16 DiphenhydrAMINE [Benadryl] 25 mg PO Q8H PRN 5 Days cap 09/02/16 predniSONE [predniSONE Tab] 20 mg PO BID 5 Days tab 09/02/16 Fexofenadine/Pseudoephedrine 1 each PO BID PRN #12 tab.er.12h 09/09/16 [Kendal-D 12 Hour Tablet] Ondansetron [Zofran Odt] 4 mg PO ASDIR PRN #12 odt 10/20/16 Naproxen 1 tab PO Q12 PRN #14 tab 04/23/17 Ondansetron [Zofran Odt] 4 mg PO ASDIR PRN #12 odt 01/02/18 - Allergies Allergies/Adverse Reactions: Allergies Allergy/AdvReac Type Severity Reaction Status Date / Time kiwi Allergy RASH Verified 01/02/18 17:41 mosquito bites Allergy RASH Uncoded 01/02/18 17:41 tangerines Allergy RASH Uncoded 01/02/18 17:41 Review of Systems ROS Statement: Except As Marked, All Systems Reviewed And Found Negative Constitutional: Negative for: Fever, Chills Gastrointestinal: Positive for: Nausea. Negative for: Vomiting, Abdominal Pain, Diarrhea Neurological: Negative for: Headache, Dizziness Physical Exam - Reviewed Nursing Documentation Reviewed: Yes Vital Signs Reviewed: Yes - Physical Exam Appears: Positive for: Well, Non-toxic, No Acute Distress Skin: Positive for: Normal Color. Negative for: Rash Eye Exam: Positive for: Normal appearance Neck: Positive for: Normal Cardiovascular/Chest: Positive for: Regular Rate, Rhythm Respiratory: Positive for: Normal Breath Sounds. Negative for: Wheezing, Respiratory Distress Gastrointestinal/Abdominal: Positive for: Soft. Negative for: Tenderness, Distended, Guarding, Rebound Back: Positive for: Normal Inspection Extremity: Positive for: Normal ROM Neurologic/Psych: Positive for: Alert, Oriented - Laboratory Results Urine POC: Negative Urine dip results: Positive for: Blood (large - patient is currently menstruating). Negative for: Leukocyte Esterase, Nitrate, Ketones, Glucose, Bilirubin, Protein - ECG O2 Sat by Pulse Oximetry: 98 Pulse Ox Interpretation: Normal Medical Decision Making Medical Decision Makin-year-old female with nausea Plan: Urine dip and test IM zofran Patient is aware of test results. All questions answered. Patient feels much better after Zofran injection. Previous records reviewed, labs were obtained last week, all within normal limits. Patient was given prescription for Zofran and was instructed to follow-up with primary doctor. Disposition - Clinical Impression Clinical Impression: Nausea - Patient ED Disposition Is Patient to be Admitted: No Counseled Patient/Family Regarding: Studies Performed, Diagnosis, Need For Followup, Rx Given - Disposition Referrals: [facility] [Provider Group] Disposition: Routine/Home Disposition Time: 18:07 Condition: STABLE Additional Instructions: Take meds as directed. Follow-up with primary doctor this coming week. Prescriptions: Ondansetron [Zofran Odt] 4 mg PO ASDIR PRN #12 odt PRN Reason: Nausea/Vomiting Instructions: Nausea and Vomiting, Adult (DC) Forms: [employer] (Irish)
[2018-01-02 19:08] VITALS: BP 123/74; PULSE 75; TEMP 98.2; O2SAT 99
== END 2018-01-02 19:00 | disposition home or self-care (01) ==
LOC: H.ER 17:32
DX: R11.0 Nausea (principal)
CPT/HCPCS: 81025; 96372; 99283; J2405

== ENCOUNTER 2018-01-26 13:43 | Emergency (ER) | payer MEDICAID ==
[2018-01-26 13:43] VITALS: BMI 25.8
[2018-01-26 15:00] VITALS: RESP 16
[2018-01-26 15:26] LABS: URINE BILIRUBIN NEGATIVE (NEGATIVE); URINE BLOOD NEGATIVE (NEGATIVE); URINE COLOR YELLOW (YELLOW); URINE GLUCOSE (UA) NEG (Normal); URINE LEUKOCYTE ESTERASE NEG Leu/uL (Negative); URINE PROTEIN NEGATIVE (NEGATIVE); URINE UROBILINOGEN 0.2-1.0 mg/dL (0.2-1.0)
[2018-01-26 15:32] LABS: BASO % 0.9 % (0.0-2.0); EOS % 0.7 % (0.0-4.0); HEMOGLOBIN 13.9 g/dL (12.0-16.0); LYMPH # 1.6 K/uL (1.0-4.3); LYMPH % 28.7 % (20.0-40.0); MEAN CELL VOLUME 86.9 fl (81.0-99.0); MEAN CORPUSCULAR HEMOGLOBIN 28.8 pg (27.0-31.0); MEAN CORPUSCULAR HGB CONC 33.1 g/dL (33.0-37.0); MEAN PLATELET VOLUME 7.4 fl (7.2-11.7); MONO # 0.4 K/uL (0.0-0.8); MONO % 6.5 % (0.0-10.0); NEUT # 3.6 K/uL (1.8-7.0); NEUT % 63.2 % (50.0-75.0); RBC 4.83 Mil/uL (3.80-5.20); RED CELL DISTRIBUTION WIDTH 13.3 % (11.5-14.5); WHITE BLOOD COUNT 5.7 K/uL (4.8-10.8)
[2018-01-26 15:32] LABS: URINE CLARITY SLIGHT-CLOUDY (Clear)
[2018-01-26 15:39] LABS: PROTHROMBIN TIME 11.5 Seconds (9.8-13.1)
[2018-01-26 15:42] LABS: PARTIAL THROMBOPLASTIN TIME 32.6 Seconds (25.6-37.1)
[2018-01-26 15:49] LABS: ALB/GLOB RATIO 1.4 (1.0-2.1); ALBUMIN 4.4 g/dL (3.5-5.0); ALT/SGPT 24 U/L (9-52); AST/SGOT 20 U/L (14-36); BLOOD UREA NITROGEN 8 mg/dl (7-17); CALCIUM 9.4 mg/dL (8.4-10.2); GFR NON-AFRICAN AMERICAN > 60
[2018-01-26] MEDS ORDERED: Iohexol 300 100 ML IJ ONE (16:10)
[2018-01-26] MEDS ORDERED: Sodium Chloride 0.9% 50 ML IV ONE (16:11)
--- NOTE | 2018-01-26 16:23 | ED PDOC ---
HPI: Abdomen Time Seen by Provider: 01/26/18 14:13 Chief Complaint (Nursing): Abdominal Pain Chief Complaint (Provider): Abdominal Pain History Per: Patient History/Exam Limitations: no limitations Onset/Duration Of Symptoms: Days (x1 month) Current Symptoms Are (Timing): Intermittent Episodes Additional Complaint(s): 27 y/o female with no significant presents to the ED complaining of abdominal pain, onset one month ago. Patient states the pain is intermittent. She was evaluated by both her OBGYN and firer retort both stated that there was nothing wrong. She also recently went to the [facility] ER this and her blood work and labs were normal. No other medical complaints. Past Medical History Reviewed: Historical Data, Nursing Documentation, Vital Signs Vital Signs: Last Vital Signs Temp 98.1 F 01/26/18 14:59 Pulse 86 01/26/18 14:59 Resp 16 01/26/18 14:59 BP 116/80 01/26/18 14:59 Pulse Ox 97 01/26/18 14:59 - Medical History PMH: Asthma (only when sick), Depression Denies: Diabetes, Hepatitis, HIV, HTN, Chronic Kidney Disease, Seizures, Sexually Transmitted Disease, TIA - Surgical History Surgical History: No Surg Hx - Family History Family History: States: Diabetes, Hypertension - Home Medications Home Medications: Ambulatory Orders Medication Instructions Recorded DiphenhydrAMINE [Benadryl] 1 tab PO DAILY 09/02/16 DiphenhydrAMINE [Benadryl] 25 mg PO Q8H PRN 5 Days cap 09/02/16 predniSONE [predniSONE Tab] 20 mg PO BID 5 Days tab 09/02/16 Fexofenadine/Pseudoephedrine 1 each PO BID PRN #12 tab.er.12h 09/09/16 [Kendal-D 12 Hour Tablet] Ondansetron [Zofran Odt] 4 mg PO ASDIR PRN #12 odt 10/20/16 Naproxen 1 tab PO Q12 PRN #14 tab 04/23/17 Ondansetron [Zofran Odt] 4 mg PO ASDIR PRN #12 odt 01/02/18 Ibuprofen [Motrin] 600 mg PO Q6H PRN #20 tab 01/26/18 - Allergies Allergies/Adverse Reactions: Allergies Allergy/AdvReac Type Severity Reaction Status Date / Time kiwi Allergy RASH Verified 01/26/18 13:50 mosquito bites Allergy RASH Uncoded 01/26/18 13:50 tangerines Allergy RASH Uncoded 01/26/18 13:50 Review of Systems ROS Statement: Except As Marked, All Systems Reviewed And Found Negative Gastrointestinal: Positive for: Abdominal Pain Physical Exam - Reviewed Nursing Documentation Reviewed: Yes Vital Signs Reviewed: Yes - Physical Exam Appears: Positive for: Well, Non-toxic, No Acute Distress Head Exam: Positive for: ATRAUMATIC, NORMOCEPHALIC Skin: Positive for: Normal Color, Warm, DRY Eye Exam: Positive for: EOMI, Normal appearance, PERRL Cardiovascular/Chest: Positive for: Regular Rate, Rhythm. Negative for: Murmur Respiratory: Positive for: Normal Breath Sounds. Negative for: Respiratory Distress Gastrointestinal/Abdominal: Positive for: Tenderness (bilateral lower quadrant). Negative for: Guarding, Rebound Extremity: Positive for: Normal ROM. Negative for: Pedal Edema, Deformity Neurologic/Psych: Positive for: Alert, Oriented. Negative for: Motor/Sensory D eficits - Laboratory Results Result Diagrams: 01/26/18 15:22 01/26/18 15:22 - ECG O2 Sat by Pulse Oximetry: 97 (RA) Pulse Ox Interpretation: Normal - Physician Consult Information Time Consulting Physican Contacted: 19:49 Physician Contacted: Glen Carlos Outcome Of Conversation: Can follow-up with him as outpatient next week, d/c home with Motrin q6h. Medical Decision Making Medical Decision Making: Time: 15:10 Initial Impression: abdominal pain Initial Plan: * CT Abd&Pelvis * CMP * CBC w/ diff * PTT * Prothrombin time * UA * US Pelvis Copy of imaging given to patient. Time: 16:40 Abdomen Pelvis Transvag US FINDINGS: UTERUS: Measures 6.6 x 4.6 x 3.5 cm. Retroverted, normal in size and appearance. There is normal myometrial echotexture. No fibroid or other mass lesion seen. ENDOMETRIUM: Measures 7.4 mm in diameter. Normal in appearance. CERVIX: No cervical abnormality identified. RIGHT OVARY: Not visualized. LEFT OVARY: Measures 3.8 x 2.7 x 1.8 cm. No solid mass. Normal flow. There is a 2.0 x 1.8 x 2.0 cm complicated/hemorrhagic cyst. FREE FLUID: No significant free fluid noted. OTHER FINDINGS: None. IMPRESSION: 2.0 cm complicated/hemorrhagic cyst in the left ovary. No evidence for torsion. Otherwise unremarkable pelvic ultrasound examination. Time: 16:[address] FINDINGS: LOWER THORAX: The visualized lungs are clear. LIVER: Normal in size with homogeneous enhancement. There is diffuse fatty liver. No gross lesion or ductal dilatation. GALLBLADDER AND BILE DUCTS: Partially contracted. No calcified gallstones, the wall thickening or pericholecystic fluid. PANCREAS: Normal in size with homogeneous enhancement. No gross lesion or ductal dilatation. SPLEEN: Normal in size with homogeneous enhancement. There is a 1.6 x 1.4 cm simple cyst in the interpolar region. ADRENALS: No discrete nodule. KIDNEYS AND URETERS: Normal in size with homogeneous enhancement. No hydronephrosis. No solid mass. VASCULATURE: No aortic aneurysm. BOWEL: Evaluation of the bowel is limited in the absence of oral contrast. The small bowel loops are normal in caliber. There is large amount of stool in the colon. No bowel wall thickening or obstruction. APPENDIX: Normal appendix. PERITONEUM: No free fluid. No free air. LYMPH NODES: No enlarged lymph nodes. BLADDER: Well distended and normal in appearance. REPRODUCTIVE: The uterus is normal in size. BONES: A well-circumscribed round lesion in the anterior L3 vertebral body to the left has smooth cortex, Polka dot appearance and narrow zone of transition most compatible with a hemangioma. Within normal limits for the patient's age. OTHER FINDINGS: None. IMPRESSION: No acute abdominal or pelvic abnormality. Constipation. No evidence for bowel obstruction. Fatty liver. Scribe Attestation: Documented by Migue Casiano acting as a scribe for Юлия Willard MD. Provider Scribe Attestation: All medical record entries made by the Scribe were at my direction and personally dictated by me. I have reviewed the chart and agree that the record accurately reflects my personal performance of the history, physical exam, medical decision making, and the department course for this patient. I have also personally directed, reviewed, and agree with the discharge instructions and disposition. Disposition - Clinical Impression Clinical Impression: Hemorrhagic cyst of ovary - Disposition Referrals: Glen Carlos DO [Staff Provider] - Disposition: Routine/Home Disposition Time: 19:51 Condition: STABLE Additional Instructions: FOLLOW-UP WITH [facility] WITHIN 2 DAYS FOR REEVALUATION. Prescriptions: Ibuprofen [Motrin] 600 mg PO Q6H PRN #20 tab PRN Reason: Pain, Moderate (4-7) Instructions: Ovarian Cysts Forms: [facility] (Colombian)
--- NOTE | 2018-01-26 16:44 | US ---
Date of service: 01/26/2018 HISTORY: Right lower quadrant pain COMPARISON: None available. TECHNIQUE: Transabdominal and transvaginal pelvic ultrasound was performed. FINDINGS: UTERUS: Measures 6.6 x 4.6 x 3.5 cm. Retroverted, normal in size and appearance. There is normal myometrial echotexture. No fibroid or other mass lesion seen. ENDOMETRIUM: Measures 7.4 mm in diameter. Normal in appearance. CERVIX: No cervical abnormality identified. RIGHT OVARY: Not visualized. LEFT OVARY: Measures 3.8 x 2.7 x 1.8 cm. No solid mass. Normal flow. There is a 2.0 x 1.8 x 2.0 cm complicated/hemorrhagic cyst. FREE FLUID: No significant free fluid noted. OTHER FINDINGS: None. IMPRESSION: 2.0 cm complicated/hemorrhagic cyst in the left ovary. No evidence for torsion. Otherwise unremarkable pelvic ultrasound examination.
--- NOTE | 2018-01-26 17:16 | CT ---
Date of service: 01/26/2018 PROCEDURE: CT Abdomen and Pelvis with contrast HISTORY: Right lower quadrant pain COMPARISON: 03/21/2015. TECHNIQUE: CT scan of the abdomen and pelvis was performed after administration of intravenous contrast. Oral contrast was not administered. Coronal and sagittal reformatted images were obtained. Contrast dose: 95 mL Omnipaque 300 Radiation dose: Total exam DLP = 599.5 mGy-cm. This CT exam was performed using one or more of the following dose reduction techniques: Automated exposure control, adjustment of the mA and/or kV according to patient size, and/or use of iterative reconstruction technique. FINDINGS: LOWER THORAX: The visualized lungs are clear. LIVER: Normal in size with homogeneous enhancement. There is diffuse fatty liver. No gross lesion or ductal dilatation. GALLBLADDER AND BILE DUCTS: Partially contracted. No calcified gallstones, the wall thickening or pericholecystic fluid. PANCREAS: Normal in size with homogeneous enhancement. No gross lesion or ductal dilatation. SPLEEN: Normal in size with homogeneous enhancement. There is a 1.6 x 1.4 cm simple cyst in the interpolar region. ADRENALS: No discrete nodule. KIDNEYS AND URETERS: Normal in size with homogeneous enhancement. No hydronephrosis. No solid mass. VASCULATURE: No aortic aneurysm. BOWEL: Evaluation of the bowel is limited in the absence of oral contrast. The small bowel loops are normal in caliber. There is large amount of stool in the colon. No bowel wall thickening or obstruction. APPENDIX: Normal appendix. PERITONEUM: No free fluid. No free air. LYMPH NODES: No enlarged lymph nodes. BLADDER: Well distended and normal in appearance. REPRODUCTIVE: The uterus is normal in size. BONES: A well-circumscribed round lesion in the anterior L3 vertebral body to the left has smooth cortex, Polka dot appearance and narrow zone of transition most compatible with a hemangioma. Within normal limits for the patient's age. OTHER FINDINGS: None. IMPRESSION: No acute abdominal or pelvic abnormality. Constipation. No evidence for bowel obstruction. Fatty liver.
[2018-01-26 20:06] VITALS: BP 122/81; PULSE 81; TEMP 98.4
[2018-01-29 12:54] VITALS: O2SAT 97
== END 2018-01-26 20:06 | disposition home or self-care (01) ==
LOC: H.ER 13:43
DX: N83.292 Other ovarian cyst, left side (principal); R10.9 Unspecified abdominal pain
CPT/HCPCS: 74177; 76830; 76856; 80053; 81003; 81025; 85025; 85610; 85730; 99285; Q9967

== ENCOUNTER 2018-02-24 14:35 | Emergency (ER) | payer MEDICAID, OTHER ==
[2018-02-24 14:35] VITALS: BMI 25.8
[2018-02-24 14:53] VITALS: BP 80/55; RESP 18; TEMP 98.3; O2SAT 99
[2018-02-24] MEDS ORDERED: Naproxen 500 MG TAB PO STA (15:12)
[2018-02-24] MEDS ORDERED: guaiFENesin 100 mg/5 ml Syrup UD PO STA (15:12)
--- NOTE | 2018-02-24 15:23 | ED PDOC ---
History of Present Illness History of Present Illness: 27 y/o female presents to the ED for evaluation of chest pain secondary to cough. Patient reports that approximately two weeks ago, she was diagnosed with Bronchitis at [facility] and prescribed ten days of antibiotic medications that she cannot recall the name of. Patient reports of completing course of antibiotic medications. Patient was additionally given an unknown cough syrup. Patient states chest pain started yesterday and is exclusively associated with coughing episodes. Patient offers no other complaints. (-) tearing quality, (-) positional component, (-) exertional component, (-) dizziness, (-) syncope, (-) nausea, (-) vomiting, (-) calf swelling/pain, (-) neuro deficits. PMD: Dr. Corona. LNMP: 01/30/2018 HPI: Influenza Time Seen by Provider: 02/24/18 14:46 Chief Complaint: Cough, Cold, Congestion Chief Complaint (Provider): Chest Pain History Per: Patient Exam Limitations: no limitations Past Medical History Reviewed: Historical Data, Nursing Documentation, Vital Signs Vital Signs: Last Vital Signs Temp 98.3 F 02/24/18 14:50 Pulse 80 02/24/18 14:50 Resp 18 02/24/18 14:50 BP 80/55 L 02/24/18 14:50 Pulse Ox 99 02/24/18 14:50 - Medical History PMH: Asthma (only when sick), Bronchitis, Depression - Surgical History Surgical History: No Surg Hx - Family History Family History: States: Diabetes, Hypertension - Social History Current smoker - smoking cessation education provided: Yes (5-6 cigarettes per day) - Home Medications Home Medications: Ambulatory Orders Medication Instructions Recorded DiphenhydrAMINE [Benadryl] 1 tab PO DAILY 09/02/16 DiphenhydrAMINE [Benadryl] 25 mg PO Q8H PRN 5 Days cap 09/02/16 RX: predniSONE [predniSONE Tab] 20 mg PO BID 5 Days tab 09/02/16 Fexofenadine/Pseudoephedrine 1 each PO BID PRN #12 tab.er.12h 09/09/16 [Kendal-D 12 Hour Tablet] Ondansetron [Zofran Odt] 4 mg PO ASDIR PRN #12 odt 10/20/16 RX: Naproxen 1 tab PO Q12 PRN #14 tab 04/23/17 Ondansetron [Zofran Odt] 4 mg PO ASDIR PRN #12 odt 01/02/18 Ibuprofen [Motrin] 600 mg PO Q6H PRN #20 tab 01/26/18 Albuterol Sulfate [Ventolin Hfa] 1 puff IH Q4 #1 unit 02/24/18 RX: Naproxen 500 mg PO BID PRN #20 tab 02/24/18 RX: Promethazine DM [Phenergan DM 5 ml PO Q6 PRN #150 ml 02/24/18 Syrup] - Allergies Allergies/Adverse Reactions: Allergies Allergy/AdvReac Type Severity Reaction Status Date / Time kiwi Allergy RASH Verified 01/26/18 13:50 mosquito bites Allergy RASH Uncoded 01/26/18 13:50 tangerines Allergy RASH Uncoded 01/26/18 13:50 Review of Systems ROS Statement: Except As Marked, All Systems Reviewed And Found Negative Cardiovascular: Positive for: Chest Pain Respiratory: Positive for: Cough Physical Exam - Reviewed Nursing Documentation Reviewed: Yes Vital Signs Reviewed: Yes - Physical Exam Comments: GENERAL APPEARANCE: Patient is awake, alert, oriented x 3, in no acute distress. Resting comfortably. SKIN: Warm, dry; (-) cyanosis. EYES: (-) conjunctival pallor. ENMT: Mucous membranes moist. NECK: Supple, FROM CHEST AND RESPIRATORY: (+) reproducible anterior chest wall tenderness. Lungs: (-) rales, (-) rhonchi, (-) wheezes; breath sounds equal bilaterally. Respirations even and nonlabored, speaking in full sentences. HEART AND CARDIOVASCULAR: (-) irregularity ABDOMEN AND GI: Soft; (-) distention, (-) tenderness, (-) palpable pulsatile mass. EXTREMITIES: (-) deformity (-) edema, (-) calf tenderness. (+) distal pulses. NEURO AND PSYCH: Mental status as above. Cranial nerves grossly intact; strength symmetric. Gait: steady. Speech: clear. (-)facial asymmetry Medical Decision Making Medical Decision Making: Time: 1511 Impression: Chest wall pain secondary to cough Plan: -- EKG -- CXR Two Views -- Naproxen 500 mg PO -- Robitussin 200 mg PO Time: 1630 CXR RESULTS FINDINGS: LINES AND TUBES: None. LUNG AND PLEURA: The lungs are well inflated and clear. No pleural effusion or pneumothorax. HEART AND MEDIASTINUM: The heart is not enlarged. No aortic atherosclerotic calcification present. The hilar and mediastinal contours are within normal limits. SKELETAL STRUCTURES: The bony structures are within normal limits for the patient's age. VISUALIZED UPPER ABDOMEN: Normal. OTHER FINDINGS: None. IMPRESSION: No active pulmonary disease. 1640 On re-evaluation, patient reports improvement of symptoms. On exam, patient remains AAOx3, in no acute distress. Lungs clear to auscultation, cardiac RRR, repeat neuro exam shows no focal findings. Vitals stable. Lab/Diagnostic results d/w the patient in great detail. Diagnosis of chest wall pain, cough, bronchitis d/w the patient. Based on history, exam and diagnostic results, plan will be for outpatient follow up. Patient instructed to follow-up with pmd / referral provided / the clinic in 1- 2 days without fail. Advised to take medication as prescribed. Return to the emergency room at any time for any new or worsening symptoms. Patient states she fully agrees with and understands discharge instructions. States that she agrees with the plan and disposition. Verbalized and repeated discharge instructions and plan. I have given the patient opportunity to ask any additional questions. _ Scribe Attestation: Documented by Concha Ham, acting as a scribe for Meliza Hooker PA-C. Provider Scribe Attestation: All medical record entries made by the Scribe were at my direction and personally dictated by me. I have reviewed the chart and agree that the record accurately reflects my personal performance of the history, physical exam, medical decision making, and the department course for this patient. I have also personally directed, reviewed, and agree with the discharge instructions and disposition. - ECG ECG Rhythm: Positive for: Sinus Rhythm. Negative for: ST/T Changes Interpretation Of ECG: QTC is 451 Rate: 99 O2 Sat by Pulse Oximetry: 99 (RA) Pulse Ox Interpretation: Normal Disposition - Clinical Impression Clinical Impression: Chest wall pain, Cough, Bronchitis - Patient ED Disposition Is Patient to be Admitted: No Counseled Patient/Family Regarding: Studies Performed, Diagnosis, Need For Followup, Rx Given - Disposition Referrals: primary, doctor [Other] Disposition: Routine/Home Disposition Time: 16:40 Condition: FAIR Additional Instructions: The emergency medical care you received today was directed at your acute symptoms. If you were prescribed any medication, please fill it and take as directed. It may take several days for your symptoms to resolve. Return to the Emergency Department if your symptoms worsen, do not improve, or if you have any other problems. Please contact your doctor in 2 days for re-evaluation and follow up / or call one of the physicians/clinics you have been referred to that are listed on the Patient Visit Information form that is included in your discharge packet. Bring any paperwork you were given at discharge with you along with any medications you are taking to your follow up visit. Our treatment cannot replace ongoing medical care by a primary care provider (PCP) outside of the emergency department. Prescriptions: Albuterol Sulfate [Ventolin Hfa] 1 puff IH Q4 #1 unit RX: Naproxen 500 mg PO BID PRN #20 tab PRN Reason: Pain, Moderate (4-7) RX: Promethazine DM [Phenergan DM Syrup] 5 ml PO Q6 PRN #150 ml PRN Reason: Cough Instructions: Cough in Adults, Costochondritis, Chest Pain That Is Not Caused by the Heart (DC), Acute Bronchitis Forms: [facility] (Macedonian), [facility] ED School/Work Excuse Print Language: LIBERIAN - POA Present On Arrival: None
[2018-02-24 15:31] VITALS: PULSE 99
[2018-02-24] MEDS ORDERED: Naproxen 500 MG TAB PO ONE (15:45)
[2018-02-24] MEDS ORDERED: guaiFENesin 100 mg/5 ml Syrup UD ONE (15:45)
--- NOTE | 2018-02-24 16:33 | RAD ---
Date of service: 02/24/2018 HISTORY: Chest pain and cough COMPARISON: 09/25/2016 TECHNIQUE: Chest PA and lateral FINDINGS: LINES AND TUBES: None. LUNG AND PLEURA: The lungs are well inflated and clear. No pleural effusion or pneumothorax. HEART AND MEDIASTINUM: The heart is not enlarged. No aortic atherosclerotic calcification present. The hilar and mediastinal contours are within normal limits. SKELETAL STRUCTURES: The bony structures are within normal limits for the patient's age. VISUALIZED UPPER ABDOMEN: Normal. OTHER FINDINGS: None. IMPRESSION: No active pulmonary disease.
--- NOTE | 2018-02-25 15:57 | CARD ---
APPROVED REPORT Date of service: 02/24/2018 EKG Measurement Heart [id number] <Conclusion> Normal sinus rhythm Normal Electrocardiogram
== END 2018-02-24 19:42 | disposition home or self-care (01) ==
LOC: H.ER 14:35
DX: R07.89 Other chest pain (principal); R05 Cough; J40 Bronchitis, not specified as acute or chronic

== ENCOUNTER 2018-03-08 14:40 | Emergency (ER) | payer SELFPAY ==
[2018-03-08 14:40] VITALS: BMI 25.8
[2018-03-08 14:57] VITALS: BP 114/74; PULSE 72; RESP 18; TEMP 98.1; O2SAT 99
--- NOTE | 2018-03-08 15:21 | ED PDOC ---
HPI: Influenza Time Seen by Provider: 03/08/18 15:20 Chief Complaint: ENT Problem Chief Complaint (Provider): Sore Throat, Fever History Per: Patient Exam Limitations: no limitations Onset/Duration Of Symptoms: Days (x5) Additional complaint(s):: 27 year old female presents to the ED for evaluation of a sore throat, difficulty swallowing, and fever for the past five days, only transiently reli eved with Tylenol. Additionally, patient notes she may be . Denies other complaints. LNMP: 01/30/2018 PMD: [place] Past Medical History Reviewed: Historical Data, Nursing Documentation, Vital Signs Vital Signs: Last Vital Signs Temp 98.1 F 03/08/18 14:54 Pulse 72 03/08/18 14:54 Resp 18 03/08/18 14:54 BP 114/74 03/08/18 14:54 Pulse Ox 99 03/08/18 14:54 - Medical History PMH: Asthma (only when sick), Bronchitis, Depression Denies: Diabetes, Hepatitis, HIV, HTN, Chronic Kidney Disease, Seizures, Sexually Transmitted Disease, TIA - Surgical History Surgical History: No Surg Hx - Family History Family History: States: Diabetes, Hypertension - Social History Current smoker - smoking cessation education provided: Yes Alcohol: Social Drugs: Denies - Home Medications Home Medications: Ambulatory Orders Medication Instructions Recorded DiphenhydrAMINE [Benadryl] 1 tab PO DAILY 09/02/16 DiphenhydrAMINE [Benadryl] 25 mg PO Q8H PRN 5 Days cap 09/02/16 predniSONE [predniSONE Tab] 20 mg PO BID 5 Days tab 09/02/16 Fexofenadine/Pseudoephedrine 1 each PO BID PRN #12 tab.er.12h 09/09/16 [Kendal-D 12 Hour Tablet] Ondansetron [Zofran Odt] 4 mg PO ASDIR PRN #12 odt 10/20/16 Naproxen 1 tab PO Q12 PRN #14 tab 04/23/17 Ondansetron [Zofran Odt] 4 mg PO ASDIR PRN #12 odt 01/02/18 Ibuprofen [Motrin] 600 mg PO Q6H PRN #20 tab 01/26/18 Albuterol Sulfate [Ventolin Hfa] 1 puff IH Q4 #1 unit 02/24/18 Naproxen 500 mg PO BID PRN #20 tab 02/24/18 Promethazine DM [Phenergan DM 5 ml PO Q6 PRN #150 ml 02/24/18 Syrup] Amoxicillin/Clavulanate [Augmentin 1 tab PO BID #20 tab 03/08/18 875 MG-125 MG] - Allergies Allergies/Adverse Reactions: Allergies Allergy/AdvReac Type Severity Reaction Status Date / Time kiwi Allergy RASH Verified 01/26/18 13:50 mosquito bites Allergy RASH Uncoded 01/26/18 13:50 tangerines Allergy RASH Uncoded 01/26/18 13:50 Review of Systems ROS Statement: Except As Marked, All Systems Reviewed And Found Negative Constitutional: Positive for: Fever ENT: Positive for: Throat Pain (with diffiulty swallowing) Physical Exam - Reviewed Nursing Documentation Reviewed: Yes Vital Signs Reviewed: Yes - Physical Exam Appears: Positive for: No Acute Distress Head Exam: Positive for: ATRAUMATIC, NORMOCEPHALIC Skin: Positive for: Normal Color, Warm ENT: Positive for: Tonsillar Exudate (left sided), Other (tonsillar erythema bilaterally). Negative for: Tonsillar Swelling Neck: Positive for: Normal, Painless ROM, Supple. Negative for: Decreased ROM Cardiovascular/Chest: Positive for: Regular Rate, Rhythm Respiratory: Positive for: Normal Breath Sounds. Negative for: Crackles, Rales, Rhonchi, Respiratory Distress Lymphatic: Positive for: Other (cervical nodes mildly swollen +2 bilaterally) Neurologic/Psych: Positive for: Alert, Oriented (x3) Medical Decision Making Medical Decision Making: Time: 1519 Initial Impression: flu vs. strep; possible Initial Plan: --U-preg (NEGATIVE) --Influenza A B swab (NEGATIVE) --Rapid strep swab (NEGATIVE) 1649 Flu and strep negative. Will treat as acute baterial pharyngitis due to her pre-existieng comorbidities --- -- Scribe Attestation: Documented by Lakesha De Leon, acting as a scribe for Jaime Hills PA-C. Provider Scribe Attestation: All medical record entries made by the Scribe were at my direction and personally dictated by me. I have reviewed the chart and agree that the record accurately reflects my personal performance of the history, physical exam, medical decision making, and the department course for this patient. I have also personally directed, reviewed, and agree with the discharge instructions and disposition. - ECG O2 Sat by Pulse Oximetry: 99 (RA) Pulse Ox Interpretation: Normal Disposition - Clinical Impression Clinical Impression: Pharyngitis, acute - Patient ED Disposition Is Patient to be Admitted: No Doctor Will See Patient In The: Office Counseled Patient/Family Regarding: Studies Performed, Diagnosis, Need For Followup, Rx Given - [facility]position [facility] Disposition: Routine/Home Disposition Time: 17:01 Condition: STABLE Prescriptions: Amoxicillin/Clavulanate [Augmentin 875 MG-125 MG] 1 tab PO BID #20 tab Instructions: Sore Throat in Adults, Sore Throat, Adult (DC) Forms: [employer] (Yi)
== END 2018-03-08 17:24 | disposition home or self-care (01) ==
LOC: H.ER 14:40
DX: J02.9 Acute pharyngitis, unspecified (principal)